=== PATIENT | female | born 1955 | race Caucasian/White ===

== ENCOUNTER 2016-09-21 13:59 | Emergency (ER) | payer BC ==
[~2016-09-21] VITALS: Ht 180.3 cm; Wt 72.6 kg
[2016-09-21] MEDS ORDERED: ANASTROZOLE1 MG PO (14:23)
[2016-09-21 15:00] LABS: APPEARANCE,URINE CLEAR; KETONES,URINE NEGATIVE (NEGATIVE); LEUKOCYTE ESTERASE ,URINE NEGATIVE (NEGATIVE); NITRITE,URINE NEGATIVE (NEGATIVE); PH,URINE 7 (4.5-8.0); PROTEIN,URINE NEGATIVE (NEGATIVE); UROBILINOGEN,URINE NORMAL MG/DL (0.0-1.0)
--- NOTE | 2016-09-21 15:35 | Emergency Room Report ---
History of Present Illness General Chief Complaint: Head Injury Source: Patient Present Illness HPI 60-year-old female presents to the emergency department complaining of cranial discomfort for over 16 days. Patient describes her discomfort as pressure which is exacerbated when in any position other than lying flat. Patient states that 16 days ago she hit her head on a door in her home. Patient denies loss of consciousness she can recall the entire event she denies dizziness, nausea, vomiting. Patient states that since that accident she has not felt normal. Patient denies eaters or chills patient denies neck pain or stiffness. Patient reports mild/dull headache denies visual changes, tinnitus or vertigo. Patient reports a history of breast cancer with bilateral mastectomy. Denies ESTEVEZ/pain, reports as pressure/discomfort. Patient denies other injuries or trauma to the head. Patient was evaluated by her primary care doctor and was told to be evaluated at the ER with head CT. Patient denies weakness in the extremities, paresthesias, changes in sensation, imbalance or syncope. Denies numbness tingling or loss of sensation or gross motor movements of the extremities, incontinence of bowel or bladder. Denies CP, Palpitations, LOC, AMS , dizziness, Changes in Vision, Photophobia, changes in sensation, paresthesias , or a sudden severe headache. Allergies: Coded Allergies: LATEX (Verified Allergy, Unknown, 09/21/16) Uncoded Allergies: NSAID (Allergy, Unknown, 09/21/16) Patient History Past Medical History: see triage record Past Surgical History: none Pertinent Family History: none Now: No Immunizations: UTD Reviewed Nursing Documentation: PMH: Agreed, PSxH: Agreed Nursing Documentation-PMH Past Medical History: No History, Except For Hx Cardiac Problems: No - bi-lateral breast ca Review of Systems All Other Systems: negative except mentioned in HPI Physical Exam Vital Signs Date Time Temp Pulse Resp B/P Pulse Ox O2 Delivery O2 Flow Rate FiO2 09/21/16 14:16 99.0 77 18 132/83 99 Room Air Sp02 EP Interpretation: reviewed, normal General Appearance: no apparent distress, alert, GCS 15, non-toxic Head: normocephalic, atraumatic Eyes: bilateral eye PERRL, bilateral eye normal inspection ENT: hearing grossly normal, normal pharynx, no angioedema, normal voice Neck: full range of motion, supple/symm/no masses Respiratory: chest non-tender, lungs clear, normal breath sounds, speaking full sentences Cardiovascular #1: regular rate, rhythm, no edema Cardiovascular #2: 2+ radial (R), 2+ radial (L) Rectal: deferred Genitourinary: normal inspection, no CVA tenderness Musculoskeletal: back normal, gait/station normal, normal range of motion, non- tender, no calf tenderness Neurologic: alert, oriented x3, responsive, motor strength/tone normal, sensory intact, cerebellar normal, normal gait, speech normal, no pronator Psychiatric: judgement/insight normal, memory normal, mood/affect normal, no suicidal/homicidal ideation Reflexes: 3+ knee (R), 3+ knee (L) Skin: normal color, no rash, warm/dry, well hydrated Lymphatic: no adenopathy Medical Decision Making PA Attestation Dr. Greene is my supervising Physician whom patient management has been discussed with. Diagnostic Impression: Primary Impression: Post concussion syndrome ER Course Pt. presents to the ED c/o head discomfort x 16 days s/p hitting head on door. denies N/V or loss of consciousness. no fevers or chills. denies ESTEVEZ. Ddx considered but are not limited to concussion syndrome, subdural hematoma, ESTEVEZ , UTI, cancer, Psedudo motor Cerebri Vital signs: are WNL, pt. is afebrile H&PE are most consistent with concussion syndrome, will r/o acute intracranial process with Head CT. Pt has no focal neurological deficit on physical exam. no evidence of infection at this time. ORDERS: - none required at this time, dx is clinical. ED INTERVENTIONS: - CT Head No Contrast: No evidence of acute fracture, hemorrhage, or intracranial process Per: Official radiology report. DISCHARGE: At this time pt. is stable for d/c to home. Will provide printed patient care instructions, and any necessary prescriptions. Care plan and follow up instructions have been discussed with the patient prior to discharge. Last Vital Signs Date Time Temp Pulse Resp B/P Pulse Ox O2 Delivery O2 Flow Rate FiO2 09/21/16 14:16 99.0 77 18 132/83 99 Room Air Disposition: HOME, SELF-CARE Condition: Stable Scripts Acetaminophen* (TYLENOL EXTRA STRENGTH*) 500 Mg Tablet 500 MG ORAL Q6H, #30 TAB 0 Refills Prov: Luzmaria Dennis 09/21/16 Patient Instructions: Post-Concussion Syndrome Additional Instructions: Take medications as directed. Follow up with PCP in 3-5 days, may require Neurological evaluation if symptoms continue. Return sooner to ED if new symptoms occur, or current symptoms become worse. Luzmaria Dennis Sep 21, 2016 15:35
[2016-09-21] MEDS ORDERED: TYLENOL EXTRA500 MG ORAL (16:07)
[2016-09-21 16:24] VITALS: BP_SYST 132; BP_SYST 136; BP_DIAS 83; BP_DIAS 85
--- NOTE | 2016-09-24 15:53 | Diagnostic Imaging Report ---
Indications: Cephalgia Technique: Continuous helical CT imaging of the brain was performed with nonionic exposure control on a Siemens sensation [address] scanner. Axial and coronal images were reconstructed at 5 mm slice thickness and interval. CTDI volume(s): 70 mGy Total DLP: 1428 mGy-cm Findings: Comparison: None Mild low attenuation is present in the bilateral periventricular white matter. Ventricles, cisterns, and sulci are , diffusely prominent. No evidence of mass or hemorrhage, mass effect, midline shift, hydrocephalus, or increased intracranial pressure. Bone window images are unremarkable. Visualized paranasal sinuses and mastoid air cells are clear. IMPRESSION: No evidence of acute intracranial pathology Bilateral cerebral periventricular white matter low attenuation, nonspecific, likely chronic microvascular ischemic in nature. Mild atrophy. Written preliminary report placed in PACS 09/21/[address] scanner at [facility] is accredited by the [employer] and the scans are performed using protocols designed to limit radiation exposure to as low as reasonably achievable to attain images of sufficient resolution adequate for diagnostic evaluation.
== END 2016-09-21 16:25 | disposition home or self-care (01) ==
LOC: EMR 14:32
DX: F07.81 Postconcussional syndrome (principal); Z85.3 Personal history of malignant neoplasm of breast; Z90.13 Acquired absence of bilateral breasts and nipples; Z88.6 Allergy status to analgesic agent; Z91.040 Latex allergy status
CPT/HCPCS: 70450; 81003; 99283